=== PATIENT | female | born 1980 | race Caucasian/White ===

== ENCOUNTER 2016-11-10 18:33 | Emergency (ER) | payer OTHER ==
[~2016-11-10] VITALS: Ht 157.5 cm; Wt 76.5 kg
[~2016-11-10 18:33] MED LIST: NAPR-260 PO
[2016-11-10 18:40] VITALS: Ht 157.5 cm; Wt 76.5 kg
[2016-11-10] MEDS ORDERED: KETOROLAC 15 MG INJ IM STA (19:40)
--- NOTE | 2016-11-10 19:40 | ERD ---
ER Documentation Chief Complaint Date/Time DATE: 11/10/16 TIME: 19:38 Chief Complaint pelvic pain x 2 days HPI This 35-year-old female presents to emergency department for evaluation of pelvic pain dysmenorrhea, heavy, menorrhalgia since yesterday . Menstruation started started 3 days ago. ROS All systems reviewed and are negative except as per history of present illness. Medications Home Meds Active Scripts Naproxen* (Naprosyn*) 500 Mg Tablet, 500 MG PO BID Y for PAIN AND/OR INFLAMMATION, #30 TAB Prov:EDGARDO,NADIA 11/10/16 Nitrofurantoin Monohyd Macrocr* (Macrobid*) 100 Mg Capsr, 100 MG PO BID for 7 Days, CAP Prov:EDGARDO,NADIA 11/10/16 Naproxen* (Naprosyn*) 500 Mg Tablet, 500 MG PO BID Y for PAIN AND/OR INFLAMMATION, #30 TAB Prov:ALESSANDRA COLINDRES DOUGHNUT DOUGH MIXER 07/05/15 Allergies Allergies: Coded Allergies: No Known Allergy (Unverified , 11/10/16) PMhx/Soc Medical and Surgical Hx: pt denies Medical Hx History of Surgery: No Anesthesia Reaction: No Hx Neurological Disorder: No Hx Respiratory Disorders: No Hx Cardiac Disorders: No Hx Psychiatric Problems: No Hx Miscellaneous Medical Probl: No Hx Alcohol Use: No Hx Substance Use: No Hx Tobacco Use: No Smoking Status: Never smoker Physical Exam Vitals Vital Signs Date Time Temp Pulse Resp B/P Pulse Ox O2 Delivery O2 Flow Rate FiO2 11/10/16 22:45 98.1 71 20 110/74 98 Room Air 11/10/16 18:40 97.8 71 20 108/74 98 Physical Exam Const: Well-nourished well-hydrated well-appearing woman in no acute Head: Atraumatic Eyes: Normal Conjunctiva ENT: Normal External Ears, Nose and Mouth. Neck: Full range of motion..~ No meningismus. Resp: Clear to auscultation bilaterally Cardio: Regular rate and rhythm, no murmurs Abd: Soft, non tender, non distended. No epigastric tenderness, negative Emery sign, no McBurney's point tenderness low pelvic tenderness negative CVA tenderness Skin: Back: No midline or flank tenderness Ext: Neur: Awake and alert Psych: Normal Mood and Affect Results 24 hrs Laboratory Tests Test 11/10/16 20:09 Bedside Urine pH (LAB) 6.5 Bedside Urine Protein (LAB) 1+ Bedside Urine Glucose (UA) Negative Bedside Urine Ketones (LAB) Negative Bedside Urine Blood 3+ Bedside Urine Nitrite (LAB) Negative Bedside Urine Leukocyte Esterase (L Trace Current Medications Medications (Trade) Dose Ordered Sig/Keith Route PRN Reason Start Time Stop Time Status Last Admin Dose Admin Ketorolac Tromethamine (Toradol) 15 mg ONCE STAT IM 11/10/16 19:40 11/10/16 19:43 DC 11/10/16 20:47 Clindamycin Phosphate (Cleocin) 600 mg ONCE ONCE IM 11/10/16 22:30 11/10/16 22:30 DC Analysis has trace leukocytes, hematuria, patient is currently menstruating negative nitrates Procedures/MDM PROCEDURE: ULTRASOUND EVALUATION OF THE FEMALE PELVIS: CLINICAL INDICATION: 35 years of age, female, pelvic pain . COMPARISON: None available. TECHNIQUE: Real-time sonographic images of the pelvis were obtained transabdominally and transvaginally utilizing santos scale, color, and Doppler imaging. FINDINGS: LMP: November 07, 2016 Uterus: Appearance: Normal. Position: Retroverted Size: 9.6 x 5.8 x 7 cm. (Volume 204 mL) Endometrial stripe: 0.6 cm Right ovary and adnexa: Size: 2.6 x 1.7 x 2.1 cm. (Volume 5 mL) Appearance: Normal morphology. No masses. Arterial flow present. Left ovary and adnexa: Size: 3.4 x 1.9 x 2.2 cm. (Volume 7.7 mL) Appearance: Normal morphology. No masses. Arterial flow present. Free fluid: None. IMPRESSION: Normal ultrasound evaluation of the female pelvis. Cause for pelvic pain is not evident. Electronically viewed and signed by Lubna Chang Physician on 11/10/2016 21: 1 This 35-year-old female presents to emergency department for evaluation of pelvic pain. Patient reports dysmenorrhea, menorrhagia, patient reports back pain, and pelvic pain. Patient states that she was going to be evaluated for uterine fibroids but has not gotten the referral for the ultrasound. Patient denies chance of . Today's emergency room course includes Toradol for pain, urinalysis positive for evidence of infection, ultrasound findings by radiologist: Normal ultrasound evaluation of the female pelvis cause for pelvic pain is not evident. Plan to discharge patient home with Macrobid 100 mg twice daily 7 days, Naprosyn for dysmenorrhagia, and instructed to follow-up with primary clothing patternmaker. Patient is stable with no new complaints during ER course , clinically there is no current evidence to suggest uterine fibroids, ovarian torsion, pyelonephritis, or any other emergent condition appearing to require further evaluation or hospitalization. I feel the patient is stable for discharge at this time. I have discussed results, examination findings, the treatment plan with the patient and family present prior to discharge. Indications for emergent reevaluation, side effects of medication were also discussed. All questions were answered. Patient verbalizes understanding and agrees with plan of care. Departure Diagnosis: Primary Impression: UTI (urinary tract infection) Urinary tract infection type: acute cystitis Hematuria presence: with hematuria Qualified Code: N30.01 - Acute cystitis with hematuria Additional Impression: Menorrhagia Menorrahagia type: with onset of menstrual periods Qualified Code: N92.2 - Excessive menstruation at puberty Condition: Good Patient Instructions: Understanding Urinary Tract Infections (UTIs) Referrals: CAUSE ANALYST REFERRAL LIST Additional Instructions: Thank you for for coming to [facility] for your care today. Please ask your nurse or provider if you have questions about your care today and do not leave until all your questions have been answered. Please use any medications given as directed and follow-up with your doctor (or the doctor you were referred to) in the next 2-3 days. If you do not have a primary care doctor you may follow up at the [facility] (listed below). You may also use motrin and tylenol as needed for fever and/or pain unless instructed otherwise by your provider or nurse. Indications for more urgent follow-up have been discussed, but you may return to the Emergency Department at ANY time for any worrisome or worsening symptoms. If you have abdominal pain, please know that no test or exam you received is perfect and you should follow up within 8 hours for continued pain. If you had any imaging studies today, such as an X-Ray or CT Scan, these studies will be reviewed later by a radiologist. You will be called if there are important findings that were not identified today, so make sure the contact information you provided at registration is correct. If you received any narcotic pain control medicine today, such as Vicodin, Morphine or Dilaudid, your coordination and judgment may be affected for a number of hours. Please do not drive or operate heavy machinery, and you may want someone to assist you at home. If you were given a prescription for narcotic medication, be aware that it is very addictive- use sparingly and only if necessary. NADIA REYNOSO Nov 10, 2016 19:40
[2016-11-10 20:02] LABS: URINE BLOOD (Dip) POC 3+ (NEGATIVE)
--- NOTE | 2016-11-10 21:12 | RADRPT ---
PROCEDURE: ULTRASOUND EVALUATION OF THE FEMALE PELVIS: CLINICAL INDICATION: 35 years of age, female, pelvic pain . COMPARISON: None available. TECHNIQUE: Real-time sonographic images of the pelvis were obtained transabdominally and transvagina lly utilizing santos scale, color, and Doppler imaging. FINDINGS: LMP: November 07, 2016 Uterus: Appearance: Normal. Position: Retroverted Size: 9.6 x 5.8 x 7 cm. (Volume 204 mL) Endometrial stripe: 0.6 cm Right ovary and adnexa: Size: 2.6 x 1.7 x 2.1 cm. (Volume 5 mL) Appearance: Normal morphology. No masses. Arterial flow present. Left ovary and adnexa: Size: 3.4 x 1.9 x 2.2 cm. (Volume 7.7 mL) Appearance: Normal morphology. No masses. Arterial flow present. Free fluid: None. IMPRESSION: Normal ultrasound evaluation of the female pelvis. Cause for pelvic pain is not evident. RPTAT: HCTS Physician Lonnie Date Time Electronically viewed and signed by Physician Lonnie on 11/10/2016 21:11 /
[2016-11-10] MEDS ORDERED: CLINDAMYCIN 300 MG INJ IM ONE (22:30)
[2016-11-10] MEDS ORDERED: NAPR-260 PO (22:32)
[2016-11-10] MEDS ORDERED: NITR-58 PO (22:32)
[2016-11-10 22:45] VITALS: BP 110/74; PULSE 71; RESP 20; TEMP 98.1
== END 2016-11-10 22:47 | disposition home or self-care (01) ==
LOC: FTE 18:33
DX: N30.01 Acute cystitis with hematuria (principal); N92.0 Excessive and frequent menstruation with regular cycle
CPT/HCPCS: 76830; 76856; 81003; 96372; 99285; J1885

== ENCOUNTER 2016-12-01 16:58 | Emergency (ER) | payer OTHER ==
[~2016-12-01] VITALS: Ht 160 cm; Wt 78.0 kg
[~2016-12-01 16:58] MED LIST changes: +NITR-58 PO
[2016-12-01 18:35] VITALS: Ht 160 cm; Wt 78.0 kg
[2016-12-01 20:50] LABS: URINE BLOOD (Dip) POC Negative (NEGATIVE)
[2016-12-01 21:32] LABS: ADD UMIC YES; UR ASCORBIC ACID NEGATIVE (NEGATIVE); UR BILIRUBIN (Dip) NEGATIVE (NEGATIVE); UR BLOOD (Dip) NEGATIVE (NEGATIVE); UR CLARITY SLIGHTLY CLOUDY (CLEAR); UR COLOR YELLOW (YELLOW); UR GLUCOSE (Dip) NEGATIVE (NEGATIVE); UR KETONES (Dip) NEGATIVE (NEGATIVE); UR LEUKOCYTE ESTERASE (Dip) 1+ Leu/ul (NEGATIVE); UR NITRITE (Dip) NEGATIVE (NEGATIVE); UR RBC 3 /HPF (0-5); UR SPECIFIC GRAVITY (Dip) 1.017 (1.003-1.030); UR SQUAMOUS EPITHELIAL CELL FEW /HPF (FEW); UR TOTAL PROTEIN (Dip) NEGATIVE (NEGATIVE); UR UROBILINOGEN (Dip) NEGATIVE (NEGATIVE)
[2016-12-01] MEDS ORDERED: CEPH-443 PO (22:08)
[2016-12-01 22:13] VITALS: BP 110/76; PULSE 71; RESP 16; TEMP 98.2
--- NOTE | 2016-12-02 00:46 | ERD ---
ER Documentation Chief Complaint Date/Time DATE: 12/02/16 TIME: 00:39 Chief Complaint still having UTI s/sx despite beinghere last week finished ATB HPI Patient is a 36-year-old female who presents emergency department for concerns of dysuria and urinary frequency 4 days. Patient was seen here on 11-10-16. At the time she had a pelvic ultrasound which was negative for pelvic pathology. Normal flow was noted to bilateral ovaries. At that time it was determined the patient had a UTI. Patient was given Macrobid and does report completing full course of antibiotics. Patient states her symptoms did not improve intermittently however her symptoms restarted 3 days ago. Patient denies any vaginal bleeding. Denies any fevers, chills, nausea, vomiting, abdominal pain, back pain or loss of consciousness. Has an appointment with her FIXING MACHINE OPERATOR doctor Flores tomorrow. ROS All systems reviewed and are negative except as per history of present illness. Medications Home Meds Active Scripts Cephalexin* (Keflex*) 500 Mg Capsule, 500 MG PO TID for 7 Days, CAP Prov:ANDREEA YEPEZ PA-C 12/01/16 Naproxen* (Naprosyn*) 500 Mg Tablet, 500 MG PO BID Y for PAIN AND/OR INFLAMMATION, #30 TAB Prov:EDGARDO,NADIA 11/10/16 Nitrofurantoin Monohyd Macrocr* (Macrobid*) 100 Mg Capsr, 100 MG PO BID for 7 Days, CAP Prov:EDGARDO,NADIA 11/10/16 Naproxen* (Naprosyn*) 500 Mg Tablet, 500 MG PO BID Y for PAIN AND/OR INFLAMMATION, #30 TAB Prov:ALESSANDRA COLINDRES NP 07/05/15 Allergies Allergies: Coded Allergies: No Known Allergy (Unverified , 11/10/16) PMhx/Soc Medical and Surgical Hx: pt denies Medical Hx History of Surgery: Yes (ARIADNA REYNOSO 2013) Anesthesia Reaction: No Hx Neurological Disorder: No Hx Respiratory Disorders: No Hx Cardiac Disorders: No Hx Psychiatric Problems: No Hx Miscellaneous Medical Probl: No Hx Alcohol Use: No Hx Substance Use: No Hx Tobacco Use: No Smoking Status: Never smoker Physical Exam Vitals Vital Signs Date Time Temp Pulse Resp B/P Pulse Ox O2 Delivery O2 Flow Rate FiO2 12/01/16 22:13 98.2 71 16 110/76 97 Room Air 12/01/16 18:35 98.6 78 20 115/76 99 Physical Exam GENERAL: Well-developed, well-nourished female. Appears in no acute distress. HEAD: Normocephalic, atraumatic. EYES: Pupils are equally reactive bilaterally. EOMs grossly intact. No conjunctival erythema. ENT: Moist mucous membranes. No uvula deviation. No kissing tonsils. NECK: Supple. No meningismus. Normal range of motion of the neck. LUNG: Clear to auscultation bilaterally. No rhonchi, wheezing, rales or coarse breath sounds. HEART: Regular rate and rhythm. No murmurs, rubs or gallops. ABDOMEN: No scars, ecchymosis or rashes noted. Soft, nontender, and nondistended. Positive bowel sounds in all four quadrants. No rebound tenderness , no guarding. (-) McBurney's point tenderness. No CVA tenderness. EXTREMITIES: Equal pulses bilaterally. No peripheral clubbing, cyanosis or edema. No unilateral leg swelling. NEUROLOGIC: Alert and oriented. Moving all four extremities without any difficulty. Normal speech. Steady gait. SKIN: Normal color. Warm and dry. No rashes or lesions. Results 24 hrs Laboratory Tests Test 12/01/16 20:52 12/01/16 20:58 Urine Color YELLOW Urine Clarity SLIGHTLY CLOUDY Urine pH 5.0 Urine Specific [place] 1.017 Urine Ketones NEGATIVEmg/dL Urine Nitrite NEGATIVEmg/dL Urine Bilirubin NEGATIVEmg/dL Urine Urobilinogen NEGATIVEmg/dL Urine Leukocyte Esterase 1+[place]/ul Urine Microscopic RBC 3/HPF Urine Microscopic WBC 17/HPF Urine Squamous Epithelial Cells FEW/HPF Urine Hemoglobin NEGATIVEmg/dL Urine Glucose NEGATIVEmg/dL Urine Total Protein NEGATIVEmg/dl Urine Test NEGATIVE Bedside Urine pH (LAB) 5.5 Bedside Urine Protein (LAB) Negative Bedside Urine Glucose (UA) Negative Bedside Urine Ketones (LAB) Negative Bedside Urine Blood Negative Bedside Urine Nitrite (LAB) Negative Bedside Urine Leukocyte Esterase (L 1+ Procedures/MDM MEDICAL DECISION MAKING: This is a 36-year-old female who dysuria and frequency 4 days. Patient recently was treated for UTI and given Macrobid. Patient states her symptoms have started again. Vital signs were reviewed. Urine was negative. Patient was afebrile. UA showed 1+ leukocyte esterase. Urine sent for culture. Advised patient I will give her prescription for Keflex. Patient will be notified if antibiotics need to be switched based on urine culture results. Patient understands and agrees with this plan. Given these findings, the patient 's presentation is most consistent with urinary tract infection. I have a much lower clinical concern for pyelonephritis, nephrolithiasis, appendicitis, diverticulitis, ectopic , PID, ovarian torsion, or tubo-ovarian abscess. Patient advised to see her FIXING MACHINE OPERATOR tomorrow as scheduled. Patient advised to have Pap smear done. PRESCRIPTIONS: Keflex DISCHARGE: At this time, patient is stable for discharge and outpatient management. I have instructed the patient to follow-up with his/her primary care physician in 1-2 days. Patient should repeat UA in 2 weeks to check for resolution of urinary tract infection. If symptoms persist, patient may need to see a specialist for further examinations and testing. I have instructed the patient to promptly return to the ER at any time for any new or worsening symptoms including increased pain, fever, nausea, vomiting, urinary changes or weakness. The patient and/or family expressed understanding of and agreement with this plan. All questions were answered. Home care instructions were provided. Disclaimer: Inadvertent spelling and grammatical errors are likely due to EHR/ dictation software use and do not reflect on the overall quality of patient care. Also, please note that the electronic time recorded on this note does not necessarily reflect the actual time of the patient encounter. Departure Diagnosis: Primary Impression: UTI (urinary tract infection) Urinary tract infection type: site unspecified Hematuria presence: with hematuria Qualified Code: N39.0 - Urinary tract infection with hematuria, site unspecified Condition: Stable Patient Instructions: Understanding Urinary Tract Infections (UTIs) Additional Instructions: Call your primary care doctor TOMORROW for an appointment during the next 1-2 days.See the doctor sooner or return here if your condition worsens before your appointment time. ANDREEA YEPEZ PA-C Dec 02, 2016 00:46
== END 2016-12-01 22:14 | disposition home or self-care (01) ==
LOC: FTE 16:58
DX: N39.0 Urinary tract infection, site not specified (principal)
CPT/HCPCS: 81001; 81003; 84703; 87086; 99283

== ENCOUNTER 2018-01-18 20:09 | Emergency (ER) | END 2018-01-19 00:01 | disposition home or self-care (01) ==

== ENCOUNTER 2018-05-16 18:48 | Emergency (ER) | payer OTHER ==
[~2018-05-16] VITALS: Ht 152.4 cm; Wt 74.0 kg
[~2018-05-16 18:48] MED LIST changes: +CEPH-443 PO; +DOXY100T20 PO; -NAPR-260 PO; +NAPR-985 PO
[2018-05-16 19:10] VITALS: BP 109/57; PULSE 80; RESP 18; Ht 152.4 cm; Wt 74.0 kg
[2018-05-16] MEDS ORDERED: PRED20TA PO (19:46)
[2018-05-16] MEDS ORDERED: IBUP-1542 PO (19:46)
[2018-05-16] MEDS ORDERED: ALBU18HF INHALATION (19:46)
--- NOTE | 2018-05-16 19:48 | ERD ---
ER Documentation Chief Complaint Chief Complaint FEVER WITH CHILLS/COUGH/BODY ACHES X 3 DAYS HPI 37-year-old female presents with fever, cough and body aches for last 3 days. She took 200 mg ibuprofen today. She has no fever triage. The cough is dry. She has no vomiting or abdominal pain, urinary complaints. ROS All systems reviewed and are negative except as per history of present illness. Medications Home Meds Active Scripts Albuterol Sulfate* (Ventolin HFA*) 18 Gm Hfa.aer.ad, 2 PUFF INHALATION Q4H, #1 INHALER Prov:PRAFUL JOHNSON MD 05/16/18 Prednisone* (Prednisone*) 20 Mg Tab, 40 MG PO DAILY for 4 Days, TAB Start on May 17, 2018 Prov:PRAFUL JOHNSON MD 05/16/18 Ibuprofen* (Motrin*) 600 Mg Tab, 600 MG PO Q6, #15 TAB Prov:PRAFUL JOHNSON MD 05/16/18 Doxycycline Hyclate* (Doxycycline Hyclate*) 100 Mg Tablet.dr, 100 MG PO BID for 10 Days, TAB Prov:KENA ENG PA-C 01/18/18 Cephalexin* (Keflex*) 500 Mg Capsule, 500 MG PO TID for 7 Days, CAP Prov:ANDREEA YEPEZ PA-C 12/01/16 Naproxen* (Naprosyn*) 500 Mg Tablet, 500 MG PO BID PRN for PAIN AND/OR INFLAMMATION, #30 TAB Prov:EDGARDO,NADIA 11/10/16 Nitrofurantoin Monohyd Macrocr* (Macrobid*) 100 Mg Capsr, 100 MG PO BID for 7 Days, CAP Prov:EDGARDO,NADIA 11/10/16 Naproxen* (Naprosyn*) 500 Mg Tablet, 500 MG PO BID PRN for PAIN AND/OR INFLAMMATION, #30 TAB Prov:ALESSANDRA COLINDRES NP 07/05/15 Allergies Allergies: Coded Allergies: No Known Allergy (Unverified , 11/10/16) PMhx/Soc History of Surgery: Yes (ARIADNA REYNOSO 2013) Anesthesia Reaction: No Hx Neurological Disorder: No Hx Respiratory Disorders: No Hx Cardiac Disorders: No Hx Psychiatric Problems: No Hx Miscellaneous Medical Probl: No Hx Alcohol Use: No Hx Substance Use: No Hx Tobacco Use: No FmHx Family History: No diabetes, No coronary disease, No other Physical Exam Vitals Vital Signs Date Temp Pulse Resp B/P (MAP) Pulse Ox O2 O2 Flow FiO2 Time Delivery Rate 05/16/18 98.2 80 18 109/57 98 19:10 (74) Physical Exam Const: No acute distress Head: Atraumatic Eyes: Normal Conjunctiva ENT: Normal External Ears, Nose and Mouth. Neck: Full range of motion. No meningismus. Resp: Clear to auscultation bilaterally minimal wheeze without rales or retractions. Cardio: Regular rate and rhythm, no murmurs Abd: Soft, non tender, non distended. Normal bowel sounds Skin: No petechiae or rashes Back: No midline or flank tenderness Ext: No cyanosis, or edema Neur: Awake and alert Psych: Normal Mood and Affect Results 24 hrs Current Medications Medications Dose Sig/Keith Start Time Status Last (Trade) Ordered Route PRN Stop Time Admin Dose Reason Admin Prednisone 40 mg ONCE ONCE 05/16/18 (Prednisone) PO 20:00 05/16/18 20:01 650 mg ONCE ONCE 05/16/18 Acetaminophen PO 20:00 (Tylenol 05/16/18 20:01 Tab) Procedures/MDM Patient presents with a 3-day history of body aches, cough, minimal wheeze without evidence of hypoxemia, respiratory distress, signs of pneumonia, abdominal pain, urinary complaints. She likely has a resolving viral URI. She will be treated with Ventolin, prednisone, increased dose of ibuprofen given. She is advised to recheck for new or worsening symptoms with primary care doctor otherwise allow the next few days for presumed viral illness to resolve. The patient was stable with no new complaints during the ER course. Clinically, there is no current evidence to suggest meningitis, sepsis, acute abdomen, pneumonia, stroke, acute coronary syndrome, pulmonary embolism, aortic dissection or any other emergent condition appearing to require further evaluation or hospitalization. Patient counseled regarding my diagnostic impression and care plan. Prior to discharge all questions answered. Pt agrees with treatment plan and understands strict return precautions. Pt is instructed to follow up with primary care provider within 24-48 hours. Precautionary i nstructions provided including instructions to return to the ER if not improving or for any worsening or changing symptoms or concerns. Departure Diagnosis: Primary Impression: Wheeze Additional Impression: URI (upper respiratory infection) URI type: unspecified URI Qualified Codes: J06.9 - Acute upper respiratory infection, unspecified Condition: Stable Patient Instructions: Uri, Viral W/ Wheezing (Adult) Additional Instructions: Likely viral illness should improve over the next few days. Recheck for new or worsening symptoms with primary care doctor. PRAFUL JOHNSON MD May 16, 2018 19:48
[2018-05-16] MEDS ORDERED: predniSONE 20 MG TAB PO ONE (20:00)
[2018-05-16] MEDS ORDERED: ACETAMINOPHEN 325 MG TAB PO ONE (20:00)
== END 2018-05-16 20:21 | disposition home or self-care (01) ==
LOC: FTE 18:48
DX: J06.9 Acute upper respiratory infection, unspecified (principal)
CPT/HCPCS: 99283; J7512